=== PATIENT | female | born 1990 ===

== ENCOUNTER 2017-06-15 15:48 | Emergency (ER) | payer OTHER ==
[2017-06-15 15:48] VITALS: BMI 22.8
[2017-06-15] MEDS ORDERED: Sodium Chloride 0.9% 1,000 ML IV ONE ×2 (16:42→20:03)
[2017-06-15] MEDS ORDERED: Sodium Chloride 0.9% 1,000 ML ONE ×2 (16:47→20:27)
[2017-06-15 16:53] LABS: RBC URINE 1 /hpf (0-3); TRANSITIONAL EPITHIAL < 1 /hpf (0-3); URINE BACTERIA RARE (<OCC); URINE BILIRUBIN NEGATIVE (NEGATIVE); URINE BLOOD NEGATIVE (NEGATIVE); URINE COLOR Yellow (YELLOW); URINE GLUCOSE (UA) NORMAL (Normal); URINE KETONE NEGATIVE (NEGATIVE); URINE LEUKOCYTE ESTERASE 1+ Leu/uL (Negative); URINE PROTEIN NEGATIVE (NEGATIVE); URINE UROBILINOGEN NORMAL mg/dL (0.2-1.0); WBC URINE 7 /hpf (0-5)
[2017-06-15 16:56] LABS: BASO % 0.4 % (0.0-2.0); EOS # 0.3 K/uL (0.0-0.7); EOS % 3.8 % (0.0-4.0); HEMATOCRIT 42.6 % (34.0-47.0); MEAN CELL VOLUME 86.8 fL (81.0-99.0); MEAN CORPUSCULAR HEMOGLOBIN 29.5 pg (27.0-31.0); MEAN PLATELET VOLUME 10.3 fL (7.2-11.7); MONO # 0.5 K/uL (0.0-0.8); MONO % 5.2 % (0.0-10.0); RED CELL DISTRIBUTION WIDTH 14.2 % (11.5-14.5); WHITE BLOOD COUNT 9.1 K/uL (4.8-10.8)
[2017-06-15 17:06] LABS: CHLORIDE 99 mmol/L (98-107)
[2017-06-15 17:07] LABS: POTASSIUM 3.8 mmol/L (3.6-5.2); SODIUM 139 mmol/L (132-148)
[2017-06-15 17:09] VITALS: RESP 16
[2017-06-15 17:09] LABS: ALB/GLOB RATIO 1.3 (1.0-2.1); ALKALINE PHOSPHATASE 64 U/L (38-126); ALT/SGPT 22 U/L (9-52); AST/SGOT 19 U/L (14-36); BILIRUBIN,TOTAL 0.6 mg/dL (0.2-1.3); BLOOD UREA NITROGEN 13 mg/dL (7-17); CARBON DIOXIDE 26 mmol/L (22-30); GFR AFRICAN-AMERICAN > 60; GLUCOSE,RANDOM 79 mg/dL (65-105); TOTAL PROTEIN 7.6 g/dL (6.3-8.3)
[2017-06-15 17:10] LABS: CALCIUM 8.7 mg/dl (8.6-10.4)
--- NOTE | 2017-06-15 18:25 | C.PDOC ---
History Of Present Illness Patient presents to ED c/o RLQ pain since this moring, intermittent, nonradiating, associated with nausea. Patient seen by molder trimmer this AM, evaluated her IUD and she was tyold IUD is in place (originally placed Dec 2016) . Patient denies chance of , vomiting, diarrhea, fever, dysuria/ hematuria, vaginal discharge/bleeding. Time Seen by Provider: 06/15/17 16:41 Chief Complaint (Nursing): Abdominal Pain History Per: Patient History/Exam Limitations: no limitations Onset/Duration Of Symptoms: Hrs Current Symptoms Are (Timing): Still Present Severity: Moderate Location Of Pain/Discomfort: RLQ Quality Of Discomfort: "Pain" Associated Symptoms: Nausea. denies: Vomiting, Diarrhea Abnormal Vaginal Bleeding: No Past Medical History Reviewed: Historical Data, Nursing Documentation, Vital Signs Vital Signs: Last Vital Signs Temp 98.6 F 06/15/17 16:04 Pulse 84 06/15/17 17:15 Resp 16 06/15/17 16:55 BP 101/58 L 06/15/17 17:15 Pulse Ox 100 06/15/17 18:54 - Medical History PMH: Anemia, Hypercholesterolemia Surgical History: Family History: States: No Known Family Hx - Social History Hx Tobacco Use: No Hx Alcohol Use: No Hx Substance Use: No - Immunization History Hx Tetanus Toxoid Vaccination: No Hx Influenza Vaccination: No Hx Pneumococcal Vaccination: No Review Of Systems Except As Marked, All Systems Reviewed And Found Negative. Constitutional: Negative for: Fever, Chills Cardiovascular: Negative for: Chest Pain, Palpitations Respiratory: Negative for: Cough, Shortness of Breath Gastrointestinal: Positive for: Nausea, Abdominal Pain. Negative for: Vomiting , Diarrhea Physical Exam - Physical Exam Appears: Well, Non-toxic, In Acute Distress (in mild pain ) Oral Mucosa: Moist Cardiovascular: Rhythm Regular Respiratory: Normal Breath Sounds, No Rales, No Rhonchi, No Wheezing Gastrointestinal/Abdominal: Bowel Sounds, Soft, Tenderness ((+) RLQ pTTP, (+) McBurney's, (-) Rovsing's), No Distention, No Guarding, No Rebound Back: Normal Inspection, No CVA Tenderness Neurological/Psych: Oriented x3 ED Course And Treatment - Laboratory Results Result Diagrams: 06/15/17 16:52 06/15/17 16:52 O2 Sat by Pulse Oximetry: 100 (RA) Pulse Ox Interpretation: Normal Progress Note: Blood work, UA, Upreg and CT scan abd/pelvis ordered and reviewed. Patient given IV NS bolus, IV fentanyl (due to borderline low BP). Disposition - Disposition Disposition Time: 19:00 Condition: STABLE Forms: [employer] (Mauritian) - Clinical Impression Clinical Impression: RLQ abdominal pain Physician Patient Turnover Patient Signed Over To: Sofía Hallman Handoff Comments: pending CT scan abd/pelvis, reassess
[2017-06-15] MEDS ORDERED: Iohexol 300 100 ML IJ ONE (19:03)
--- NOTE | 2017-06-15 20:05 | CT ---
EXAM: CT Abdomen and Pelvis With Intravenous Contrast CLINICAL HISTORY: 26 years old, female; Pain; Abdominal pain; Localized; Right lower quadrant (rlq); Additional info: Rlq pain, R/O appendicitis TECHNIQUE: Axial computed tomography images of the abdomen and pelvis with intravenous contrast. This CT exam was performed using one or more of the following dose reduction techniques: automated exposure control, adjustment of the mA and/or kV according to patient size, and/or use of iterative reconstruction technique. Coronal and sagittal reformatted images were created and reviewed. CONTRAST: 100 mL of OMNIPAQUE 300 administered intravenously. EXAM DATE/TIME: 06/15/2017 4:56 PM COMPARISON: There are no prior studies for comparison. FINDINGS: Lower thorax: Heart size is normal. There is minimal atelectasis at the lung bases. ABDOMEN: Liver: There is fatty infiltration of the liver. Gallbladder and bile ducts: unremarkable Pancreas: unremarkable Spleen: unremarkable Adrenals: unremarkable Kidneys and ureters: unremarkable Stomach and bowel: Stomach is almost empty. Rotation is normal. Small bowel is mildly distended with fluid and air. There is no obstruction. There is mild terminal ileal wall thickening. Appendix is unremarkable. Colon is incompletely distended which limits evaluation. There is moderate stool in the rectum. Appendix: See above. PELVIS: Bladder: Urinary bladder is unremarkable. Reproductive: Uterus is anteflexed with an IUD. There is mild prominence the right adnexa. Left ovary is in anterior and inferior to the uterus, in the midline. Left ovary is enlarged with multiple cysts. Left ovary measures approximately 3.1 x 6 x 5.2 cm. There is a corpus luteum in the left ovary. ABDOMEN and PELVIS: Intraperitoneal space: There is a small amount of free fluid.There is no free air. Bones/joints: There are no acute osseous abnormalities Soft tissues: There is a tiny fat containing umbilical hernia. Vasculature: Vascular structures are unremarkable. Lymph nodes: There is no pathologic adenopathy. IMPRESSION: No acute solid visceral abnormality; no CT findings of appendicitis; enlarged left ovary with multiple cysts a corpus luteum; prominent right adnexa/ovary; small amount of fluid in the pelvis, physiologic versus recent cyst rupture Additional findings as described above.
[2017-06-15 21:35] VITALS: BP 111/77; PULSE 79; TEMP 97.9; O2SAT 99
== END 2017-06-15 20:40 | disposition home or self-care (01) ==
LOC: C.ER 15:48
DX: N83.209 Unspecified ovarian cyst, unspecified side (principal); R10.31 Right lower quadrant pain
CPT/HCPCS: 74177; 80053; 81001; 84702; 84703; 85025; 96374; 96375; 96376; 99284; J2405; J3010; J7040; Q9967

== ENCOUNTER 2017-10-04 17:26 | Emergency (ER) | payer MEDICAID, OTHER ==
[2017-10-04 17:27] VITALS: BMI 22.8
[2017-10-04 20:22] LABS: RBC URINE 2 /hpf (0-3); URINE BACTERIA FEW (<OCC); URINE BILIRUBIN NEGATIVE (NEGATIVE); URINE BLOOD NEGATIVE (NEGATIVE); URINE COLOR Yellow (YELLOW); URINE GLUCOSE (UA) 1+ mg/dL (Normal); URINE KETONE 1+ mg/dL (NEGATIVE); URINE LEUKOCYTE ESTERASE 1+ Leu/uL (Negative); URINE PROTEIN 1+ mg/dL (NEGATIVE); WBC URINE 16 /hpf (0-5)
--- NOTE | 2017-10-04 21:03 | C.PDOC ---
History Of Present Illness 26 year old female with no significant PMHx presents to the ED with complaints of rectal pain and bleeding on defecation beginning today and notes she is 8 weeks and has has mid-abdominal pain when straining. Patient denies vaginal bleeding, vaginal discharge, urinary symptoms, fever, chills, or other complaints at this time. Time Seen by Provider: 10/04/17 19:27 Chief Complaint (Nursing): Abdominal Pain History Per: Patient History/Exam Limitations: no limitations Onset/Duration Of Symptoms: Hrs Current Symptoms Are (Timing): Still Present Quality Of Discomfort: "Pain" Associated Symptoms: Rectal Bleeding. denies: Nausea, Vomiting, Diarrhea Modifying Factors: None Recent travel outside of the [place]: No Past Medical History Reviewed: Historical Data, Nursing Documentation, Vital Signs Vital Signs: Last Vital Signs Temp 98.4 F 10/04/17 21:31 Pulse 84 10/04/17 21:31 Resp 18 10/04/17 21:31 BP 111/66 10/04/17 21:31 Pulse Ox 100 10/04/17 23:29 - Medical History PMH: Anemia, Hypercholesterolemia Surgical History: Family History: States: Unknown Family Hx - Social History Hx Tobacco Use: No Hx Alcohol Use: No Hx Substance Use: No - Immunization History Hx Tetanus Toxoid Vaccination: No Hx Influenza Vaccination: No Hx Pneumococcal Vaccination: No Review Of Systems Constitutional: Negative for: Fever, Chills Cardiovascular: Negative for: Chest Pain Respiratory: Negative for: Cough, Shortness of Breath Gastrointestinal: Positive for: Abdominal Pain, Rectal Pain, Other (rectal bleeding). Negative for: Nausea, Vomiting, Diarrhea Genitourinary: Negative for: Dysuria, Hematuria, Vaginal Discharge, Vaginal Bleeding Physical Exam - Physical Exam Appears: Non-toxic, No Acute Distress Skin: Warm, Dry, No Rash Head: Atraumatic, Normacephalic, No Tenderness Eye(s): bilateral: Normal Inspection, PERRL, EOMI Oral Mucosa: Moist Neck: Supple Chest: Symmetrical, No Deformity Cardiovascular: Rhythm Regular (tachycardic), No Murmur Respiratory: No Rales, No Rhonchi, No Wheezing, Other (clear to auscultation bilaterally ) Gastrointestinal/Abdominal: Soft, Tenderness (minimal midsuprapubic tenderness ) , No Distention, No Guarding, No Rebound Rectal: No Hemorrhoids, Other (+ anal fissue to 8 o'clock; no dark stool present ) Pelvic: No Vaginal Bleeding, No Vaginal Discharge, No Cervical Motion Tenderness Extremity: Normal ROM, No Tenderness Neurological/Psych: Oriented x3 ED Course And Treatment O2 Sat by Pulse Oximetry: 100 (RA) Pulse Ox Interpretation: Normal - CT Scan/US US Other Rad Studies (CT/US): Read By Radiologist, Radiology Report Reviewed CT/US Interpretation: EXAM: US First Trimester, Transabdominal. CLINICAL HISTORY: 26 years old, female; Pain; complicated by abdominal or pelvic pain; Generalized. abdominal pain; First trimester; Gestational age or lmp: 09wks 5d; ; Prior surgery; Surgery. date: 6+ months; Surgery type: ; Additional info: , abd pain. TECHNIQUE : Real-time transabdominal obstetrical ultrasound of the maternal pelvis and a first trimester. with image documentation. COMPARISON: None. FINDINGS: Gestation: A single intrauterine gestation is identified with a crown -rump length measuring 22.6 mm,. corresponding to an approximate gestational age of 9 weeks and 0 days. cardiac activity is. identified at a rate of 162 beats per minute. A small implantation hemorrhage is detected, measuring 13 mm in greatest dimension. Placenta/amniotic fluid: Cannot be adequately evaluated due to the early gestational age. Uterus/cervix: Cervix measures 2.4 cm, and is closed. Ovaries: The right ovary is unremarkable in echogenicity and size measuring 3.8 x 1.1 x 4.4 cm. The. left ovary is increased in size measuring 3.8 x 3.2 x 3.3 cm. A rounded focus of decreased. echogenicity is identified within the left ovary measuring 2.3 cm in greatest dimension, likely a corpus luteal cyst. Free fluid: No free fluid. IMPRESSION: Single intrauterine gestation with an approximate gestational age of 9 weeks and 0 days. cardiac activity is identified. Small implantation hemorrhage. Left-sided corpus luteal cyst. luteal cyst. Progress Note: Labs and Beta-Quant were ordered. US was ordered. 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 - Scribe Statement The provider has reviewed the documentation as recorded by the Scribe Karlee Spann All medical record entries made by the Katya were at my direction and personally dictated by me. I have reviewed the chart and agree that the record accurately reflects my personal performance of the history, physical exam, medical decision making, and the department course for this patient. I have also personally directed, reviewed, and agree with the discharge instructions and disposition.
[2017-10-04 21:32] VITALS: BP 111/66; PULSE 84; RESP 18; TEMP 98.4
--- NOTE | 2017-10-04 22:21 | US ---
EXAM: US First Trimester, Transabdominal CLINICAL HISTORY: 26 years old, female; Pain; complicated by abdominal or pelvic pain; Generalized abdominal pain; First trimester; Gestational age or lmp: 09wks 5d; ; Prior surgery; Surgery date: 6+ months; Surgery type: ; Additional info: , abd pain TECHNIQUE: Real-time transabdominal obstetrical ultrasound of the maternal pelvis and a first trimester with image documentation. COMPARISON: None. FINDINGS: Gestation: A single intrauterine gestation is identified with a crown-rump length measuring 22.6 mm, corresponding to an approximate gestational age of 9 weeks and 0 days. cardiac activity is identified at a rate of 162 beats per minute. A small implantation hemorrhage is detected, measuring 13 mm in greatest dimension. Placenta/amniotic fluid: Cannot be adequately evaluated due to the early gestational age. Uterus/cervix: Cervix measures 2.4 cm, and is closed. Ovaries: The right ovary is unremarkable in echogenicity and size measuring 3.8 x 1.1 x 4.4 cm. The left ovary is increased in size measuring 3.8 x 3.2 x 3.3 cm. A rounded focus of decreased echogenicity is identified within the left ovary measuring 2.3 cm in greatest dimension, likely a corpus luteal cyst. Free fluid: No free fluid. IMPRESSION: Single intrauterine gestation with an approximate gestational age of 9 weeks and 0 days. cardiac activity is identified. Small implantation hemorrhage. Left-sided corpus luteal cyst.
[2017-10-04 22:43] VITALS: O2SAT 100
== END 2017-10-04 23:22 | disposition home or self-care (01) ==
LOC: C.ER 17:26
DX: K59.00 Constipation, unspecified (principal); K60.2 Anal fissure, unspecified; O23.41 Unspecified infection of urinary tract in pregnancy, first trimester; Z3A.09 9 weeks gestation of pregnancy

== ENCOUNTER 2017-11-30 14:19 | Emergency (ER) | payer MEDICAID, OTHER ==
[2017-11-30 14:19] VITALS: BMI 22.8
[2017-11-30 14:45] VITALS: RESP 16; TEMP 97.9; O2SAT 98
[2017-11-30 15:14] LABS: BASO % 0.5 % (0.0-2.0); EOS # 0.2 K/uL (0.0-0.7); EOS % 2.5 % (0.0-4.0); LYMPH # 1.7 K/uL (1.0-4.3); LYMPH % 19.2 % (20.0-40.0); MEAN CELL VOLUME 87.3 fL (81.0-99.0); MEAN CORPUSCULAR HEMOGLOBIN 30.2 pg (27.0-31.0); MEAN CORPUSCULAR HGB CONC 34.6 g/dL (33.0-37.0); MEAN PLATELET VOLUME 9.3 fL (7.2-11.7); MONO # 0.5 K/uL (0.0-0.8); MONO % 5.9 % (0.0-10.0); NEUT # 6.4 K/uL (1.8-7.0); NEUT % 71.9 % (50.0-75.0); RBC 4.32 Mil/uL (3.80-5.20); RED CELL DISTRIBUTION WIDTH 12.9 % (11.5-14.5)
[2017-11-30 15:25] LABS: ALBUMIN 3.7 g/dL (3.5-5.0); ALT/SGPT 18 U/L (9-52); AST/SGOT 17 U/L (14-36); BLOOD UREA NITROGEN 8 mg/dL (7-17); CALCIUM 9.1 mg/dl (8.6-10.4); GFR AFRICAN-AMERICAN > 60; GFR NON-AFRICAN AMERICAN > 60; LIPASE 68 U/L (23-300)
[2017-11-30 15:31] LABS: SQUAMOUS EPITHIAL 25 /hpf (0-5); URINE BACTERIA OCC (<OCC); URINE BILIRUBIN NEGATIVE (NEGATIVE); URINE BLOOD NEGATIVE (NEGATIVE); URINE CLARITY Hazy (Clear); URINE COLOR Yellow (YELLOW); URINE GLUCOSE (UA) NORMAL (Normal); URINE LEUKOCYTE ESTERASE 2+ Leu/uL (Negative); URINE NITRATE NEGATIVE (NEGATIVE); URINE PROTEIN NEGATIVE (NEGATIVE); URINE UROBILINOGEN NORMAL mg/dL (0.2-1.0)
--- NOTE | 2017-11-30 16:05 | C.PDOC ---
History Of Present Illness 26-year-old female, presents to the emergency department with complaints of right lower quadrant abdominal pain that started a few days ago. Patient notes associated nausea. States she has a Hx of similar in the past when she was diagnosed with a ruptured ovarian cyst. Patient notes that she was seen by her OBGYN yesterday, who tested her urine and gave her Tylenol for pain. Patient denies vomiting, fevers, chills, shortness of breath, chest pain, vaginal bleeding or discharge, back pain, dizziness, or any other associated symptoms. No other complaints at this time. Time Seen by Provider: 11/30/17 14:41 Chief Complaint (Nursing): Abdominal Pain History Per: Patient History/Exam Limitations: no limitations Onset/Duration Of Symptoms: Days Current Symptoms Are (Timing): Still Present Past Medical History Reviewed: Historical Data, Nursing Documentation, Vital Signs Vital Signs: Last Vital Signs Temp 97.9 F 11/30/17 14:43 Pulse 99 H 11/30/17 14:43 Resp 16 11/30/17 14:43 BP 117/82 11/30/17 14:43 Pulse Ox 98 11/30/17 16:15 - Medical History PMH: Anemia, Hypercholesterolemia Surgical History: Family History: States: No Known Family Hx - Social History Hx Tobacco Use: No Hx Alcohol Use: No Hx Substance Use: No - Immunization History Hx Tetanus Toxoid Vaccination: No Hx Influenza Vaccination: No Hx Pneumococcal Vaccination: No Review Of Systems Constitutional: Negative for: Fever Cardiovascular: Negative for: Chest Pain Respiratory: Negative for: Shortness of Breath Gastrointestinal: Positive for: Nausea, Abdominal Pain. Negative for: Vomiting Skin: Negative for: Rash Neurological: Negative for: Weakness Physical Exam - Physical Exam Appears: Non-toxic, No Acute Distress Skin: Warm, Dry, No Rash Head: Atraumatic, Normacephalic Eye(s): bilateral: Normal Inspection, PERRL Nose: Normal Oral Mucosa: Moist Lips: Normal Appearing Neck: Normal ROM Chest: Symmetrical Cardiovascular: Rhythm Regular, No Murmur Respiratory: Normal Breath Sounds, No Accessory Muscle Use Gastrointestinal/Abdominal: Soft, Tenderness (diffuse, non focal), No Guarding, No Rebound Extremity: Normal ROM Neurological/Psych: Oriented x3, Normal Speech ED Course And Treatment - Laboratory Results Result Diagrams: 11/30/17 15:07 11/30/17 15:07 O2 Sat by Pulse Oximetry: 98 Medical Decision Making Medical Decision Makin pt resting comfortable, appears well, no distress. she is now saying she is hungry. I disc results w her. As appendix was not definitively visualized appendicitis is still a remote possibility, however she is comfortable w dc and will return for any worsening symptoms. f/u w OB tomorrow. HISTORY: R/O appendicitis COMPARISON: Limited abdominal ultrasound performed 11/30/17 TECHNIQUE: Multiplanar, multi sequence MR images of the pelvis were obtained. No intravenous gadolinium contrast was administered. FINDINGS: The appendix was not identified. No pericecal edema was seen to suggest acute appendicitis. Note is made of a large gravid uterus the presentation is breech. Anterior placenta. This study was not designed to evaluate anatomy. The urinary bladder is unremarkable. No bulky adenopathy is identified. Limited visualization of the noncontrast solid organs appear grossly unremarkable. No evidence of bowel obstruction. The left ovary is visualized. The presumed right ovary appears grossly unremarkable. Question possibility of anterior left lower uterine segment fibroid. No osseous abnormality is detected. IMPRESSION: 1. Appendix not visualized. No pericecal edema to suggest acute appendicitis. 2. Gravid uterus with fetus in breech presentation. 3. Additional findings as above. PROCEDURE: Ultrasound of the right lower quadrant HISTORY: Evaluate for appendicitis COMPARISON: None available. TECHNIQUE: High-resolution ultrasound of the right lower quadrant was performed. FINDINGS: The appendix is not distinctly identified. There are peristalsing bowel loops as documented by the technologist. No free fluid in the right lower quadrant. No solid or cystic mass. IMPRESSION: The appendix is not visualized. No sonographic abnormality in the right lower quadrant. Please note nonvisualization of the appendix does not exclude acute appendicitis for which clinical correlation and follow-up is advised. PROCEDURE: OB Pelvic Ultrasound HISTORY: , abdominal pain. COMPARISON: None available. FINDINGS: UTERUS: Single Live intrauterine fetus in breech presentation. BPD: 3.60 cm corresponding to 17 weeks and 0 days of gestational age. HC: 13.43 cm corresponding to 17 weeks and 0 days of gestational age. AC: 11.11 cm corresponding to 17 weeks and 0 days of gestational age. FL: 2.46 cm corresponding to 17 weeks and 3 days of gestational age. age (Ultrasound estimated): 17 weeks and 1 day. Date of delivery (Ultrasound estimated) : 05/09/2018 Heart rate: 146 bpm. Aliza-gestational hemorrhage: None. Placenta is anterior. CERVIX: Long and closed. No cervical abnormality seen. RIGHT OVARY: Within normal limits. LEFT OVARY: Within normal limits. FREE FLUID: None. OTHER FINDINGS: None. IMPRESSION: Single live intrauterine fetus in breech presentation with estimated mean gestational age of 17 weeks and 1 day. The estimated date of delivery by ultrasound is 05/09/2018. Placenta is anterior. Disposition - Disposition Disposition: HOME/ ROUTINE Disposition Time: 18:50 Condition: STABLE Forms: [employer] (Albanian) - Clinical Impression Clinical Impression: Abdominal pain during - Scribe Statement The provider has reviewed the documentation as recorded by the Scribe (Jack Argueta) All medical record entries made by the Scribe were at my direction and personally dictated by me. I have reviewed the chart and agree that the record accurately reflects my personal performance of the history, physical exam, medical decision making, and the department course for this patient. I have also personally directed, reviewed, and agree with the discharge instructions and disposition.
--- NOTE | 2017-11-30 16:13 | US ---
PROCEDURE: Ultrasound of the right lower quadrant HISTORY: Evaluate for appendicitis COMPARISON: None available. TECHNIQUE: High-resolution ultrasound of the right lower quadrant was performed. FINDINGS: The appendix is not distinctly identified. There are peristalsing bowel loops as documented by the technologist. No free fluid in the right lower quadrant. No solid or cystic mass. IMPRESSION: The appendix is not visualized. No sonographic abnormality in the right lower quadrant. Please note nonvisualization of the appendix does not exclude acute appendicitis for which clinical correlation and follow-up is advised.
--- NOTE | 2017-11-30 16:19 | US ---
PROCEDURE: OB Pelvic Ultrasound HISTORY: , abdominal pain. COMPARISON: None available. FINDINGS: UTERUS: Single Live intrauterine fetus in breech presentation. BPD: 3.60 cm corresponding to 17 weeks and 0 days of gestational age. HC: 13.43 cm corresponding to 17 weeks and 0 days of gestational age. AC: 11.11 cm corresponding to 17 weeks and 0 days of gestational age. FL: 2.46 cm corresponding to 17 weeks and 3 days of gestational age. age (Ultrasound estimated): 17 weeks and 1 day. Date of delivery (Ultrasound estimated) : 05/09/2018 Heart rate: 146 bpm. Aliza-gestational hemorrhage: None. Placenta is anterior. CERVIX: Long and closed. No cervical abnormality seen. RIGHT OVARY: Within normal limits. LEFT OVARY: Within normal limits. FREE FLUID: None. OTHER FINDINGS: None. IMPRESSION: Single live intrauterine fetus in breech presentation with estimated mean gestational age of 17 weeks and 1 day. The estimated date of delivery by ultrasound is 05/09/2018. Placenta is anterior.
--- NOTE | 2017-11-30 18:46 | MRI ---
HISTORY: R/O appendicitis COMPARISON: Limited abdominal ultrasound performed 11/30/17 TECHNIQUE: Multiplanar, multi sequence MR images of the pelvis were obtained. No intravenous gadolinium contrast was administered. FINDINGS: The appendix was not identified. No pericecal edema was seen to suggest acute appendicitis. Note is made of a large gravid uterus the presentation is breech. Anterior placenta. This study was not designed to evaluate anatomy. The urinary bladder is unremarkable. No bulky adenopathy is identified. Limited visualization of the noncontrast solid organs appear grossly unremarkable. No evidence of bowel obstruction. The left ovary is visualized. The presumed right ovary appears grossly unremarkable. Question possibility of anterior left lower uterine segment fibroid. No osseous abnormality is detected. IMPRESSION: 1. Appendix not visualized. No pericecal edema to suggest acute appendicitis. 2. Gravid uterus with fetus in breech presentation. 3. Additional findings as above. Findings discussed with Dr. Mensah on 11/30/17 at 6:43 p.m.
[2017-11-30 18:58] VITALS: BP 125/85; PULSE 68
== END 2017-11-30 18:57 | disposition home or self-care (01) ==
LOC: C.ER 14:19
DX: O26.92 Pregnancy related conditions, unspecified, second trimester (principal); R10.9 Unspecified abdominal pain; Z3A.17 17 weeks gestation of pregnancy; D64.9 Anemia, unspecified; E78.00 Pure hypercholesterolemia, unspecified

== ENCOUNTER 2018-09-01 16:36 | Emergency (ER) | payer OTHER ==
[2018-09-01 16:37] VITALS: BMI 22.8
[2018-09-01 16:57] VITALS: RESP 18
[2018-09-01 17:47] LABS: SQUAMOUS EPITHIAL 3 /hpf (0-5); URINE BACTERIA RARE (<OCC); URINE BILIRUBIN NEGATIVE (NEGATIVE); URINE BLOOD 2+ (NEGATIVE); URINE CLARITY Hazy (Clear); URINE COLOR Yellow (YELLOW); URINE GLUCOSE (UA) NORMAL (Normal); URINE LEUKOCYTE ESTERASE 3+ Leu/uL (Negative); URINE PROTEIN NEGATIVE (NEGATIVE)
[2018-09-01 17:52] LABS: HCG,QUALITATIVE URINE NEGATIVE (NEGATIVE)
--- NOTE | 2018-09-01 18:43 | C.PDOC ---
History Of Present Illness 27 yo female come sin for evaluation of suprapubic pain developed for past few days. Pt reports, today noted some blood in urine. Pt sts, s/p 4 months ago, denies any complication during or after surgery, " called my [facility] and he recommend go to ED make sure all is fine". Otherwise, pt denies fever, chills, N/V, abd. pain, back pain, pain on urination, vaginal irritation or discharge. Ambulate to Ed for evaluation, not in any apparent distress. Time Seen by Provider: 09/01/18 17:01 Chief Complaint (Nursing): Abnormal Skin Integrity History Per: Patient Past Medical History Reviewed: Historical Data, Nursing Documentation, Vital Signs Vital Signs: Last Vital Signs Temp 99.2 F 09/01/18 16:51 Pulse 100 H 09/01/18 16:51 Resp 18 09/01/18 16:51 BP 109/73 09/01/18 16:51 Pulse Ox 99 09/01/18 16:51 - Medical History PMH: Anemia, Hypercholesterolemia Surgical History: Family History: States: Unknown Family Hx - Social History Hx Tobacco Use: No Hx Alcohol Use: No Hx Substance Use: No - Immunization History Hx Tetanus Toxoid Vaccination: No Hx Influenza Vaccination: No Hx Pneumococcal Vaccination: No Review Of Systems Except As Marked, All Systems Reviewed And Found Negative. Constitutional: Negative for: Fever, Chills ENT: Negative for: Throat Pain Cardiovascular: Negative for: Chest Pain, Palpitations Respiratory: Negative for: Cough, Shortness of Breath, Hemoptysis Gastrointestinal: Negative for: Nausea, Vomiting, Abdominal Pain, Diarrhea Genitourinary: Positive for: Hematuria, Vaginal Bleeding. Negative for: Dysuria, Vaginal Discharge Musculoskeletal: Negative for: Back Pain Skin: Negative for: Rash Neurological: Negative for: Altered Mental Status, Headache, Dizziness Physical Exam - Physical Exam Appears: Well, Non-toxic, No Acute Distress Skin: Normal Color, Warm, Dry, No Rash Head: Normacephalic Eye(s): bilateral: PERRL Nose: No Flaring, No Discharge Oral Mucosa: Moist, No Drooling Throat: No Erythema, No Drooling Neck: Supple Cardiovascular: Rhythm Regular Respiratory: No Decreased Breath Sounds, No Accessory Muscle Use, No Stridor, No Wheezing Gastrointestinal/Abdominal: Soft, Tenderness (mild suprapubic), No Distention, No Guarding, Other (well healed insicion suprapubic area s/p . NO edema, no erythema, no discharge.) Back: No CVA Tenderness Extremity: Normal ROM, No Deformity, No Swelling Neurological/Psych: Oriented x3, Normal Speech ED Course And Treatment - Laboratory Results Urine POC: Negative O2 Sat by Pulse Oximetry: 99 Pulse Ox Interpretation: Normal - CT Scan/US Pelvic/transvaginal US Other Rad Studies (CT/US): Radiology Report Reviewed CT/US Interpretation: MPRESSION: Heterogeneous uterine echotexture. Otherwise grossly unremarkable. If clinically indicated, suggest cross-sectional imaging for further evaluation. Progress Note: On re-eval, pt is afebrile, hemodynamicaly stable. Non-toxic. Tolerate Po well in ED. Abd: benign, (-) guarding, (-) rebound. back: (-) CVA tenderness. UA review (+) WBC, RBC. US pelvic/transvaginal - no acute findings. Pt advised. ref. to f/u with [facility] in 2-3 days for re-eavl. return to Ed if any worsening or new changes. Disposition Counseled Patient/Family Regarding: Studies Performed, Diagnosis, Need For Followup, Rx Given - Disposition [facility] Shraddha Clark MD [Staff Provider] - Disposition: HOME/ ROUTINE Disposition Time: 18:50 Condition: STABLE Additional Instructions: Encourage fluids take medication as prescribed Follow up with PMD, [facility] in 2-3 days for re-evaluation. return to ED at any time if any worsening or new changes. Prescriptions: Cefdinir [Omnicef] 300 mg PO BID #14 cap Instructions: Urinary Tract Infections in Adults Forms: [employer] (Malay) - Clinical Impression Clinical Impression: UTI (urinary tract infection)
--- NOTE | 2018-09-01 19:04 | US ---
Date of service: 09/01/2018 HISTORY: pain over line r/o uterine rupture COMPARISON: Limited Ob ultrasound performed 11/30/17 TECHNIQUE: Real-time transabdominal pelvic ultrasound was performed. In addition a transvaginal pelvic ultrasound was necessary to better depict pelvic anatomy. FINDINGS: UTERUS: Measures 7.9 x 4.2 x 5.1 cm. Anteverted. Heterogeneous uterine echotexture. ENDOMETRIUM: Measures 8 mm in diameter. CERVIX: No cervical abnormality identified. RIGHT OVARY: Measures 2.8 x 2.3 x 2.5 cm. Blood flow is demonstrated. LEFT OVARY: Measures 2.2 x 2.8 x 2.8 cm. Blood flow is demonstrated. FREE FLUID: No significant free fluid noted. OTHER FINDINGS: None. IMPRESSION: Heterogeneous uterine echotexture. Otherwise grossly unremarkable. If clinically indicated, suggest cross-sectional imaging for further evaluation.
[2018-09-01 19:06] VITALS: BP 126/82; PULSE 82; TEMP 98.2
[2018-09-02 16:21] VITALS: O2SAT 99
== END 2018-09-01 19:06 | disposition home or self-care (01) ==
LOC: C.ER 16:36
DX: N39.0 Urinary tract infection, site not specified (principal)